=== PATIENT | female | born 1945 | race Caucasian/White ===

== ENCOUNTER 2016-09-29 14:52 | Inpatient (IN) | payer OTHER ==
[~2016-09-29] VITALS: Ht 160 cm; Wt 64.9 kg
[2016-09-29 16:24] LABS: HEMOGLOBIN 11.8 gm/dl (12.3-15.3); RED BLOOD COUNT 3.83 M/UL (4.00-5.10); WHITE BLOOD COUNT 12.6 K/UL (4.5-11.0)
[2016-09-30 07:48] LABS: BUN/CREATININE RATIO 28 (0-10)
[2016-09-30] MEDS ORDERED: ASPIRIN81 MG PO (15:10)
[2016-09-30] MEDS ORDERED: SYNTHROID25 MCG PO (15:11)
[2016-09-30] MEDS ORDERED: PLAVIX 75 MG TA75 MG PO (15:11)
[2016-09-30] MEDS ORDERED: PROTONIX 40 MG40 M1 PO (15:11)
[2016-09-30] MEDS ORDERED: GABAPENTIN300 MG PO (15:12)
[2016-09-30] MEDS ORDERED: NORTRIPTYLINE H75 MG PO (15:12)
[2016-09-30] MEDS ORDERED: DEPAKOTE500 MG PO (15:17)
[2016-10-01 04:17] LABS: HEMOGLOBIN 11.1 gm/dl (12.3-15.3); RED BLOOD COUNT 3.63 M/UL (4.00-5.10); WHITE BLOOD COUNT 13.6 K/UL (4.5-11.0)
[2016-10-02 06:20] LABS: HEMOGLOBIN 11.4 gm/dl (12.3-15.3); RED BLOOD COUNT 3.78 M/UL (4.00-5.10); WHITE BLOOD COUNT 11.8 K/UL (4.5-11.0)
[2016-10-02] MEDS ORDERED: SYMBICORT 16010.2 GM INH (12:46)
[2016-10-02] MEDS ORDERED: MEDROL DOSEPAK 24 MG PO (12:46)
== END 2016-10-02 13:55 | disposition home or self-care (01) | DRG 189 ==
LOC: ER1 14:52 → ZEROF 21:59 → MED SURG 4 21:59
PROVIDERS: Emergency Medicine; Internal Medicine; ADMIT Family Medicine
DX: J96.01 Acute respiratory failure with hypoxia (principal); J44.0 Chronic obstructive pulmonary disease with (acute) lower respiratory infection; J44.1 Chronic obstructive pulmonary disease with (acute) exacerbation; R65.10 Systemic inflammatory response syndrome (SIRS) of non-infectious origin without acute organ dysfunction; N39.0 Urinary tract infection, site not specified; J20.9 Acute bronchitis, unspecified; E78.5 Hyperlipidemia, unspecified; E03.9 Hypothyroidism, unspecified; D53.9 Nutritional anemia, unspecified; I73.9 Peripheral vascular disease, unspecified; F31.9 Bipolar disorder, unspecified; F42.9 Obsessive-compulsive disorder, unspecified; F41.9 Anxiety disorder, unspecified; Z98.51 Tubal ligation status; Z87.891 Personal history of nicotine dependence; Z82.49 Family history of ischemic heart disease and other diseases of the circulatory system; Z80.1 Family history of malignant neoplasm of trachea, bronchus and lung; Z79.02 Long term (current) use of antithrombotics/antiplatelets; Z79.82 Long term (current) use of aspirin; Z79.899 Other long term (current) drug therapy; I11.0 Hypertensive heart disease with heart failure; I50.9 Heart failure, unspecified; R00.0 Tachycardia, unspecified; D72.829 Elevated white blood cell count, unspecified
CPT/HCPCS: 36415; 36600; 71020; 80048; 80053; 81001; 82803; 83605; 83690; 83880; 84484; 85025; 85027; 85610; 85730; 87040; 87086; 94640; 94664; 96365; 96366; 96367; 96375; 96376; 99285; J1956; J2920; J2930

== ENCOUNTER → 2021-05-25 | Outpatient (CLI) | payer OTHER ==
[~2021-05-25] MED LIST: ASPIRIN81 MG PO; CEFUROXIME500 MG PO; COLACE 100MG C100 MG PO; DEPAKOTE500 MG PO; GABAPENTIN300 MG PO; IPRAT-ALBUT 0.5-3 ML INH; IRON325 M1 PO; LASIX20 MG PO; LEVAQUIN500 MG PO; LOPRESSOR 25 MG25 MG PO; LYRICA75 MG PO; MEDROL DOSEPAK 24 MG PO; NORTRIPTYLINE H75 MG PO; PLAVIX 75 MG TA75 MG PO; PRINIVIL10 MG PO; PRINIVIL5 MG PO; PROTONIX 40 MG40 M1 PO; PROVENTIL HFA6.7 GM INH; PROVENTIL HFA6.7 GM PO; SPIRIVA RESPIMAT4 GM INH; SYMBICORT 16010.2 GM INH; SYNTHROID25 MCG PO; TYLENOL 325MG325 MG PO; VENTOLIN HFA 66.7 GM INH; VITAMIN C 250250 MG PO; VITAMIN D35000 UNI1 PO
== END ==
LOC: WCC 09:10
DX: L97.925 Non-pressure chronic ulcer of unspecified part of left lower leg with muscle involvement without evidence of necrosis (principal); I73.9 Peripheral vascular disease, unspecified; L30.9 Dermatitis, unspecified; J44.9 Chronic obstructive pulmonary disease, unspecified; I11.0 Hypertensive heart disease with heart failure; I50.9 Heart failure, unspecified

== ENCOUNTER → 2021-06-01 | Outpatient (CLI) | payer OTHER | LOC: WCC 08:43 | DX: I87.2 Venous insufficiency (chronic) (peripheral) (principal); L97.215 Non-pressure chronic ulcer of right calf with muscle involvement without evidence of necrosis; I73.9 Peripheral vascular disease, unspecified; L30.9 Dermatitis, unspecified; J44.9 Chronic obstructive pulmonary disease, unspecified; I11.0 Hypertensive heart disease with heart failure; I50.9 Heart failure, unspecified; Z79.899 Other long term (current) drug therapy ==